=== PATIENT | male | born 1940 | race Caucasian/White ===

== ENCOUNTER 2016-09-17 08:42 | Day surgery (SDC) | payer OTHER, BC ==
[~2016-09-17] VITALS: Ht 172.7 cm; Wt 80.8 kg
[~2016-09-17 08:42] MED LIST: ASPIR 8181 M1 PO; CARDURA2 M1 PO; COREG6.25 M1 PO; FEROSUL325 MG PO; LASIX20 MG PO; LIPITOR80 MG PO; PLAVIX75 MG PO; PRILOSEC OTC20 MG PO; VITAMIN B CO1 TABLET PO; ZESTRIL20 MG PO
[2016-09-17 10:16] VITALS: BP 176/74
[2016-09-17 12:45] VITALS: BP 154/60
[2016-09-17 13:20] VITALS: BP 158/66
== END 2016-09-17 13:30 | disposition home or self-care (01) ==
LOC: SDC 08:42
PROC: 08B43ZZ Excision of Right Vitreous, Percutaneous Approach (ICD-10-PCS; principal; 2016-09-17)
DX: H43.21 Crystalline deposits in vitreous body, right eye (principal); H43.391 Other vitreous opacities, right eye; I25.10 Atherosclerotic heart disease of native coronary artery without angina pectoris; Z95.1 Presence of aortocoronary bypass graft; Z95.5 Presence of coronary angioplasty implant and graft; I73.9 Peripheral vascular disease, unspecified; K21.9 Gastro-esophageal reflux disease without esophagitis; N40.0 Benign prostatic hyperplasia without lower urinary tract symptoms; I42.9 Cardiomyopathy, unspecified; D50.0 Iron deficiency anemia secondary to blood loss (chronic); Z79.02 Long term (current) use of antithrombotics/antiplatelets; Z87.891 Personal history of nicotine dependence; I25.2 Old myocardial infarction
CPT/HCPCS: 80048; 85014; 85018; J0690